=== PATIENT | male | born 1975 | race Caucasian/White ===

== ENCOUNTER 2016-11-02 19:21 | Emergency (ER) | payer OTHER, SELFPAY ==
[~2016-11-02] VITALS: Ht 175.3 cm; Wt 142.3 kg
[2016-11-02] MEDS ORDERED: MECLIZINE CHEWABLE 25 MG TAB ONE (19:56)
[2016-11-02] MEDS ORDERED: MECLIZINE CHEWABLE 25 MG TAB PO ONE (20:00)
[2016-11-02 20:25] LABS: BLOOD UREA NITROGEN 11 mg/dL (7-18)
[2016-11-02 21:16] VITALS: BP 131/86
== END 2016-11-02 21:19 | disposition home or self-care (01) ==
LOC: ED 21:00
DX: E86.0 Dehydration (principal); R42 Dizziness and giddiness; I10 Essential (primary) hypertension; Z87.891 Personal history of nicotine dependence
CPT/HCPCS: 36415; 80048; 81003; 82040; 85025; 93005